=== PATIENT | female | born 1995 | race Caucasian/White ===

== ENCOUNTER 2025-02-24 07:20 | Outpatient (CLI) | payer BC, SELFPAY | END 2025-02-24 07:21 | disposition home or self-care (01) | PROVIDERS: PCP Physician Assistant Medical; Visit Provider Internal Medicine | DX: S29.9XXA Unspecified injury of thorax, initial encounter (principal); S60.512A Abrasion of left hand, initial encounter; S80.212A Abrasion, left knee, initial encounter; V29.408A Other motorcycle driver injured in collision with unspecified motor vehicles in traffic accident, initial encounter; Y92.488 Other paved roadways as the place of occurrence of the external cause | CPT/HCPCS: A0425; A0427 ==

== ENCOUNTER 2025-02-24 08:00 | Emergency (ER) | payer OTHER, BC, SELFPAY ==
[2025-02-24] VITALS (24 sets, daily range): BP systolic 120–158; BP diastolic 76–95; PULSE 69–87; RESP 10–28; TEMP 36.4; O2SAT 97–100; BMI 40.4
--- OUTSIDE RECORDS SUMMARY | 2025-02-24 08:01 | XMS_ITS | Clinical Summary ---
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 Name Role Phone 8CareTeamNurse-MA, 8CareTeamNurse-MA Unavailable Unavailable Conditions or Problems Problem Name Problem Code Onset Date Status Entry Date Provider Comment Standard Description Annotate Idiopathic intracranial hypertension [id number] (SNOMED CT) Active Stanton Pereyra MD Benign intracranial hypertension Medications Medication Instructions Start Date Stop Date Generic Name NDC Provider TOPAMAX 25 MG TABS Take 1 tablet by mouth once a day for 7 days, then take 2 tablet by mouth once a day for 7 days, then take 3 tablet by mouth once a day for 7 days, then take 4 tablet by mouth once a day thereafter 7 topiramate [id number] Stanton Pereyra MD TOPAMAX 25 MG TABS Take 2 tablet by mouth twice a day 5 topiramate [id number] Stanton Pereyra MD TOPAMAX 25 MG TABS Take 1 tablet by mouth once a day for 7 days, then take 2 tablet by mouth once a day for 7 days, then take 3 tablet by mouth once a day for 7 days, then take 4 tablet by mouth once a day thereafter 7 topiramate [id number] Stanton Pereyra MD VALIUM 5 MG TABS Take Take 1 tab 30 minutes prior to scan. May repeat once as needed. 1 diazepam [id number] Stanton Pereyra MD Medications Administered No information available. Allergies, Adverse Reactions, Alerts No information available. Results Date Name Value Unit Range Flag Description External Other: Outside Tom r[facility] EHORDERS ORDERS AUTO-COMPLETED e-Health orders Plan of Care Type Date Detail Appointment 08:00 AM Rosemary toussaint PA-C, [address] [facility] [address] [facility], [address], [place], [address], Referral Other Referral Pending order MRI-Brain W/WO Pending order Obtain outside r ecords Pending order Follow up Pending order Follow up Procedures Code Procedure Name Date Entry Date [id number] MRI-Brain W/WO ORDERS Obtain outside records 12/09 Vital Signs No information available. Immunizations No information available. Advance Directives No information available.
--- OUTSIDE RECORDS SUMMARY | 2025-02-24 08:01 | XMS_ITS | Clinical Summary ---
Author Organization [facility] Address [address] [place] [id number] Care Team Providers Care Education And Training Coordinator Name Role Phone Elsewhere, Pcp Primary Care Provider Unavailabl e Source Comments Patient records contain information from all sites at [facility]. For routine questions regarding patient records, call [phone] during business hours, M-F 8:00 AM - 5:00 PM Central Time. Record requests for emergency care only can be directed to [phone] at any time.[facility] Allergies No known active allergies Medications aspirin [address] tablet Take 81 mg by mouth daily. Active norethindrone (MICRONOR) 0.35 mg tablet Take 0.35 mg by mouth daily. 3 Active semaglutide (Wegovy) 1 mg/0.5 mL pen injector injection Inject 1 mg under the skin every 7 (seven) days. on Wednesdays Active ciprofloxacin-d exAMETHasone (CIPRODEX) 0.3-0.1 % otic suspension Administer 4 drops into the right ear 2 (two) times a day. 3 Active pantoprazole (PROTONIX) 20 mg EC tablet Take 20 mg by mouth every morning before breakfast. 3 Active hydrOXYzine (ATARAX) 25 mg tablet Take 25 mg by mouth every 6 (six) hours as needed for anxiety. 2 Active loratadine (CLARITIN) 10 mg tablet Take 10 mg by mouth daily as needed for allergies. Active acetaminophen (TYLENOL) 500 mg tablet Take 1,000 mg by mouth every 6 (six) hours as needed for pain. Active oxyCODONE (ROXICODONE) 5 mg immediate release tabletIndicatio ns:Acute Pain Take 1 tablet (5 mg total) by mouth every 6 (six) hours as needed for moderate pain or score 4-6 of 10 Indication: Acute Pain. 5 tablet 3 Active sennosides-docu sate sodium (SENOKOT-S) 8.6-50 mg per tablet Take 1 tablet by mouth at bedtime as needed for constipation. 3 Active Active Problems Problem Noted Date Diagnosed Date Mass Ovary 06/11/2023 Mass Adnexal 06/11/2023 Polycystic Ovary Syndrome 03/12/2018 Depression Major Recurrent Severe 02/20/2016 Overview (03/10/2017): Depression Major Recurrent Severe Morbid Obesity 01/16/2016 Overview (03/10/2017): Morbid Obesity Body Mass Index (BMI) >40 Adult Immunizations Immunization Administration Dates Next Due 4vHPV (discontinued) 02/06/2014,08/05/2012,04/02 DTaP (Infanrix, [employer]) 06/09/2002,,04/26/1998,1997,09/28/1997 HepB Pediatric/Adolescent 1996 HepB, Unspecified 04/26/1998,09/28/1997 Hib, Unspecified 10/15/2000, 8,11/08/1997,1996 Influenza, Injectable, Quadrivalent 07/25/2015 Influenza, Unspecified 08/01/2016,07/25/2015,06/2014 MMR 06/09/2002,04/26/1998 Polio, Unspecified 06/09/2002, 0,04/26/1998,1996 Tdap 10/25/2020,06/13/2009 JUDY 10/22/2009,06/22/2009 influenza vaccine quad (FLUZONE/FLUARIX) (6 months and older)(PF) 08/13/2021,10/25/2020,10/14/2019 Family History Medical History Relation Name Comments Alcohol abuse Father Sebastian Depression Father Sebastian Lung cancer Father's Brother 1 Jf Lung cancer Father's Brother 2 Cali Depression Mother Kathy Diabetes Mother Kathy Gestational diabetes Mother Kathy Hyperlipidemia Mother Kathy Hypertension Mother Kathy Migraines Mother Kathy Relation Name Status Comments Father Sebastian Father's Brother 1 Jf Father's Brother 2 Cali Mother Kathy Social History Tobacco Use Types Packs/Day Years Used Date Smoking Tobacco: Never Smokeless Tobacco: Never Tobacco Cessation:Counseling Given: Not Answered Alcohol Use Standard Drinks/Week Comments Yes 0 (1 standard drink = 0.6 oz pur e alcohol) very rarely; socially Humiliation, Afraid, Rape, and Kick questionnair e Answer Date Recorded Within the last year, have y ou been afraid of your partner or ex-partner? No 10/23/2021 Within the last year, have y ou been humiliated or emotionally abused in other ways by your partner or ex-partner? No Within the last year, have y ou been kicked, hit, slapped, or otherwise physically hurt by your partner or ex-partner? No 10/23/2021 Within the last year, have y ou been raped or forced to have any kind of sexual activity by your partner or ex-partner? No 10/23/2021 Social Connection and Isolat ion Panel [NHANES] Answer Date Recorded In a typical week, how many times do you talk on the phone with family, friends, or neighbors? More than three times a week 10/23/2021 How often do you get togethe r with friends or relatives? Once a week 10/23/2021 How often do you attend [facility] or baptist services? 1 to 4 times per year 10/23/2021 Do you belong to any clubs o r organizations such as mandaen groups, unions, fraternal or athletic groups, or school groups? No 10/23/2021 How often do you attend meet ings of the clubs or organizations you belong to? Patient declined 10/23/2021 Are you , , di vorced, , never , or living with a partner? 10/23/2021 AUDIT-C Answer Date Recorded Q1: How often do you have a drink containing alc ohol? Monthly or less 10/23/2021 Q2: How many drinks containi ng alcohol do you have on a typical day when you are drinking? 3 or 4 10/23/2021 Q3: How often do you have si x or more drinks on one occasion? Less than monthly 10/23/2021 Overall Financial Resource Strain (CARDIA) Answe r Date Recorded How hard is it for you to pa y for the very basics like food, housing, medical care, and heating? Not very hard 10/23/2021 PHQ-2 Answer Date Recorded PHQ-2 Score 1 03/23/2022 [facility] - Occupational Stress Questionnaire Answer Date Recorded Do you feel stress - tense, restless, nervous, or anxious, or unable to sleep at night because your mind is troubled all the time - these days? Very much 10/23/2021 Exercise Vital Sign Answer Date Recorde d On average, how many days pe r week do you engage in moderate to strenuous exercise (like a brisk walk)? 3 days 10/23/2021 On average, how many minutes do you engage in exercise at this level? 90 min 10/23/2021 Hunger Vital Sign Answer Date Recorded Within the past 12 months, y ou worried that your food would run out before you got the money to buy more. Never true 10/23/19 Within the past 12 months, t he food you bought just didn't last and you didn't have money to get more. Never true 10/23/2021 PRAPARE - Transportation Answer Date Re corded In the past 12 months, has l ack of transportation kept you from medical appointments or from getting medications? No 02/2022 In the past 12 months, has l ack of transportation kept you from meetings, work, or from getting things needed for daily living? No 10/23/2021 Housing Stability Vital Sign Answer Christofer e Recorded In the last 12 months, was t here a time when you were not able to pay the mortgage or rent on time? Patient refused 10/23/19 In the last 12 months, how many places have you lived? 1 10/23/2021 In the last 12 months, was t here a time when you did not have a steady place to sleep or slept in a fpc (including now)? No 10/23/2021 Depression Answer Date Recor ded PHQ-9 Total Score (max 27) 6 03/23 Nutrition Answer Date Recorded Nutrition: EVOO Fat Source No 10/23 On average, how many serving s of fruits and vegetables do you eat per day (serving size is equal to 1 cup or approximately the size of a tennis ball)? 2-3 10/23/2021 Dental Answer Date Recorded Dental: Regular Dentist Unknown 11/03/19 Employment Answer Date Recorded Employment status Employed and actively working without restrictions 10/23/2021 Education Answer Date Recorded What is the highest level of school you have completed or the highest degree you have received? Associate degree: occupational, technical, or vocational program 10/23/2021 Comments Unknown Sex and Gender Information Value Date Recorded Sex Assigned at Female 06/20/2021 9:24 PM CDT Legal Sex Female 6:31 AM [employer] Gender Identity Female 06/20/2021 9:24 PM CDT Sexual Orientation Straight 06/20/2021 9: 24 PM CDT Last Filed Vital Signs Vital Sign Reading Time Taken Comments Blood Pressure 129/75 06/12/2023 1:10 PM CDT Pulse 72 06/12/2023 1:10 PM CDT Temperature 36.7 C (98.1 F) 06/12/2023 1:10 PM CDT Respiratory Rate 18 06/12/2023 1:10 PM CDT Oxygen Saturation 94% 06/12/2023 1:10 PM CDT Inhaled Oxygen Concentration - - Weight 133 kg (292 lb 12.3 oz) 06/11/2023 12:54 PM CDT Height 170 cm (5' 6.93) 05/21/2021 2:30 PM CDT Body Mass Index 45.95 05/21/2021 2:30 PM CDT Plan of Treatment Health Maintenance Due Date Last Done Comments HIV Screening 1996 Hepatitis C Screening 1996 Depression Monitoring (PHQ-9) 07/23/2022 03/23/2022 Cervical/Vaginal Cancer Screening 05/03/2024 05/03/2021, 03/10/2018 COVID-19 Vaccine ( season) 2024 12/12/2020, 11/14/2020 Influenza Vaccine (#1) 2024 , 07/14/2022, 08/13/2021, Additional history exists Depression Monitoring (PHQ-9 for quality tracking) 10/19/2024 DTaP,Tdap,and Td Vaccines (8 - Td or Tdap) 10/25/2030 10/25/2020, 06/13/2009, 06/09/2002, Additional history exists Hepatitis B Vaccines Completed 04/26/1998, 09/28/1997, 1996 IPV Vaccines Completed 06/09/2002, 09/19, 04/26/1998, Additional history exists HPV Vaccines Completed 02/06/2014, 07/19, 04/02/2012 Chlamydia and Gonorrhea Screening Discontinued 06/11/2023, 08/22/2021, 09/17/2016, Additional history exists Pneumococcal vaccine (0-49 years) Aged Out No longer eligible based on patient's age to complete this topic Medical Devices Implanted Type Area Lever Miller Device Identifier Shelf Expiration Date Model / Serial / Lot Stent Other Stent Other Cerebellum Procedures Procedure Name Priority Date/Time Associated Diagnosis Comments CHLAMYDIA/GONORRHOE AE AMPLIFIED RNA STAT 06/11/2023 1:23 AM CDT PATHOLOGY STAFF PHYSICAL THERAPY ASSISTANT CYTOLOGY Routine 03/10/2018 12:00 AM CDT Pap Smear Examination from Last 3 Months or Most Recently Relevant to Health Maintenance Results * Chlamydia / Gonorrhoeae Amplified RNA (06/11/2023 1:23 AM CDT) Source Swab, Cervix/Endoc ervix 06/12/2023 1:44 PM CDT ECLR Chlamydia trachomatis amplified RNA Negative Negative 06/12/2023 1:44 PM CDT ECLR Source Swab, Cervix/Endoc ervix 06/12/2023 1:44 PM CDT ECLR Neisseria gonorrhoeae amplified RNA Negative Negative 06/12/2023 1:44 PM CDT ECLR Swab (Cervix/Endocerv ix) 06/11/2023 1:23 AM CDT 06/11/2023 3:18 PM CDT Hillary Lawrence P.A.-C., P.A., M.S. LAB MICROBIOLOG Y - GENERAL ORDERABLES Final Result Performing Organization Address City/[facility]/ZIP Co de Phone Number [facility] [address] [place] [phone], [facility] ECLR [address] [place] [id number] * Pathology STAFF PHYSICAL THERAPY ASSISTANT Cytology (03/10/2018 12:00 AM CDT) PATHOLOGY STAFF PHYSICAL THERAPY ASSISTANT CYTOLOGY Patient Name: HUY ARGUETA MR#: [id number] Submitting Physician: ARLINE JAMES, ADRIENNE, DNP, HAZARDOUS WASTE REMOVER [id number] Specimen #[id number] Performing Lab: [address] [address] CLINICAL HISTORY: Last menstrual period: [id number] Status: Does patient have Menstrual Period?: Yes Does patient have prior PAP?: No Pap Type: Routine Pap Clinical History/Status (Select all that apply): None Ancillary Testing: Perform reflex HPV Testing Source: ThinPrep cervical/endocervi shivani specimen [ThinPrep vial] Diagnosis Specimen Adequacy: Satisfactory for interpretation : endocervical or transformation zone component absent. General Categorization: Negative for intraepithelial lesion or malignancy. The PAP smear is not a diagnostic procedure and should not be used as the sole means to detect cervical cancer. It is only a screening procedure to aid in the detection of cervical cancer and its precursors. Both false-negative and false-positive results have been experienced. CANDE MATHEWS Thin Prep Vial (Cervix/Endocervi x) 03/10/2018 03/10/2018 us Arline James APRN, C.N.P., D.N.P. LAB PAP STAVE CUTTING SUPERVISOR ATH ORDERABLES Final Result Performing Organization Address [facility] [[email or web address]] Co de Phone Number CANDE MATHEWS [address] [place] [id number] from Last 3 Months or Most Recently Relevant to Health Maintenance Insurance [facility] [employer] [facility] [employer] Advance Directives For more information, please contact: [phone] * Full Code (Latest Code Status on File) Date Activated Date Inactivated Comments 06/11/2023 1:05 PM 06/12/2023 3:37 PM Question Answer Comments Full Code: Not Discussed Due to: Not medically appropriate Care Teams Education And Training Coordinator Relationship Specialty Start Date End Date Elsewhere, Pcp PCP - General Internal Medicine 06/11/23
--- OUTSIDE RECORDS SUMMARY | 2025-02-24 08:01 | XMS_ITS | Clinical Summary ---
Author Organization [facility] Address [address] [place] [address] Care Team Providers Care Power Reactor Operator Name Role Phone Bella Stafford MEDICAL INSURANCE CLAIMS PROCESSOR Unavailable [phone] Jf Hardin RN Unavailable Nidia Farrell DO Primary Care Provider [phone] Cali Abbott MD Unavailable [phone] Allergies Active Allergy Reactions Criticality Noted Date Comments Milk Containing Products (Dairy) Diarrhea 10/2023 Medications acetaminophen (TYLENOL EXTRA STRGTH) 500 mg tablet Take 1-2 Tablets (500-1,000 mg) by mouth every 6 hours if needed for Headache, Pain or Temp > (Specify) (1st choice for mild pain, 0-3/10). Max acetaminophen dose: 4000mg in 24 hrs. 0 02/25/20 23 Active hydrOXYzine HCL (ATARAX) 25 mg tabletIndications: Anxiety Take 1-2 Tablets (25-50 mg) by mouth every 6 hours if needed for Anxiety (or sleep). 30 Tablet 4 9:00 PM SEAL DELIVERY VEHICLE OFFICER 11/12/19 24 Active LORazepam (ATIVAN) 0.5 mg tabIndications:Cla ustrophobia Take 1 Tablet (0.5 mg) by mouth one time for 1 dose. 30 min prior to MRI 1 Tablet 04/13/20 24 Active omeprazole (PRILOSEC) 40 mg Delayed-Release capsuleIndications :Chronic GERD Take 1 Capsule (40 mg) by mouth once daily. 90 Capsule 3 11/01/19 25 Active rizatriptan (MAXALT) 5 mg tabletIndications: Chronic nonintractable headache, unspecified headache type Take 1 Tablet (5 mg) by mouth every 2 hours if needed for Migraine. Give at minimum 2hrs apart. Max Dose: 30mg per 24hrs. 12 Tablet 3 11/01/19 Active Topamax 25 mg tablet Take 25 mg by mouth once daily. 01/24/20 Active Active Problems Problem Noted Date Diagnosed Date Pulsatile tinnitus 02/10/2025 [facility] Encounter for preconception consultation Overview (08/01/2024): Rosa Wren Heber : 1995 [facility] PRECONCEPTION CONSULTATION ON 08/04/24 REFERRING PROVIDER/CLINIC LOCATION/FAX #: JOSE Arriola P [phone]; F [phone] Primary MD approves scheduling of recommended ultrasounds/testing: Not specified REASON FOR CONSULT: hx venous sinus shunt for ICP, considering IVF TODAY'S APPOINTMENT: MD Consultation PRIMARY DIAGNOSIS: 28 y.o. Hx venous sinus shunt for ICP 02/2023 BMI>40 Prediabetes PCOS Infertility SPECIALISTS/CONSULTS: Include: Specialty MD Clinic Name Phone# [facility] [place] and ADDED TO PATIENT CARE TEAM Reproductive: Dr. Abbott Neuro: Rasta Rojas MD [facility] 03/30/24 GENETICS: PROCEDURES: Brain MRI 04/28/24 1. No acute infarction, mass effect, or intracranial hemorrhage. No significant change compared to the prior MRI. 2. Partially empty sella may represent an anatomic variant, though raises the possibility of idiopathic intracranial hypertension in an appropriate clinical setting. PERTINENT LABS: PERTINENT MEDS: ASA PLAN OF CARE: Pap smear for cervical cancer screening 05/09/20 Overview (05/09/2024): 04/2024 NIL/HPV negative Plan: Pap/HPV due 04/2029 Mass of ovary 06/11/2023 Plavix resistance 03/03/2023 Overview (03/03/2023): Per hospital d/c note 02/2023: She was found to be hypo-responder to clopidogrel 75mg daily and was found therapeutic on clopidogrel 150mg daily. She will need to take clopidogrel 150mg daily steady state through 05/27/2023, then taper off stopping 06/27/2023 to prevent thromboembolic complications from devices used. Recommend to take ASA 81 mg daily for 1 year following stenting for antiplatelet properties. Dr. Peterson to manage antiplatelet medications. GERD (gastroesophageal reflux disease) 3 Idiopathic intracranial hype rtensions/p right transverse sigmoid sinus stenting 02/24/23 01/29/2023 Overview (11/01/2024): Recommended to take daily baby aspirin, but holding during attempting conception. Recommended to then start baby aspirin at 12 weeks gestation. Saw MFM; no contraindications to IV or pushing during vaginal delivery (see documentation Jul 2024). Migraine with aura, not intr actable, without status migrainosus 07/09/2022 Polycystic ovary syndrome 03/12/2018 Morbid obesity 01/16/2016 02/24/2023 Overview (02/24/2023): Morbid Obesity Body Mass Index (BMI) >40 Adult Resolved Problems Problem Noted Date Diagnosed Date Resolved Date Severe episode of recurrent major depressive disorder 02/20/2016 02/24/2023 11/12/2023 Overview (02/24/2023): Depression Major Recurrent Severe Encounters Date Type Department Care Team Description 02/10/2025 7:00 AM CDT - 02/10/2025 11:59 PM CDT Hospital Encounter [facility] [address] [place] [address] Jose E Peterson MD Pulsatile tinnitus; Headache 02/10/2025 Travel 01/24/2025 10:10 AM CDT Office Visit [facility] [address] [place] [address] Emily Escalante, DO Preoperative Exam (CT Angiogram , 02/10, [facility], Dr. Jose E Peterson) 01/24/2025 7:00 AM CDT Telemedicine [facility] [address] [place] [address] Ana Babb, SCRATCH BRUSHER Individual Therapy 01/24/2025 Travel 01/20/2025 Telephone [facility] [address] [place] [address] Dawn James RN Concerns 01/20/2025 Travel 01/19/2025 9:34 AM CDT - 01/19/2025 2:49 PM CDT Emergency [facility] [address] [place] [id number] Zara Hay MD Nonintractable headache, unspecified chronicity pattern, unspecified headache type (Primary Dx) Discharge Disposition: Home Self Care 01/19/2025 Travel 01/09/2025 11:00 AM CDT E-Visit [address] [address] Emily Escalante, DO eVisit for Vaginal Discharge / Irritation 01/09/2025 Travel 01/03/2025 7:00 AM CDT - 01/03/2025 11:59 PM CDT Hospital Encounter [facility] [address] [place] [address] Jose E Peterson MD Pulsatile tinnitus; Headache 01/03/2025 Travel 12/21/2024 Telephone [facility] [address] [place] [address] Dawn James RN Imaging 12/20/2024 6:59 AM SEAL DELIVERY VEHICLE OFFICER - 12/20/2024 11:59 PM SEAL DELIVERY VEHICLE OFFICER Hospital Encounter [facility] [address] [place] [phone] Jose E Peterson MD Headache; Pulsatile tinnitus 12/20/2024 Travel 12/16/2024 Telephone [facility] [address] [place] [address] Rina Heath NP Concerns 12/13/2024 9:12 AM SEAL DELIVERY VEHICLE OFFICER - 12/13/2024 11:59 PM SEAL DELIVERY VEHICLE OFFICER Hospital Encounter [facility] [id number] [place] [address] Emily Escalante DO Holm, Kaitlyn A, PT 12/13/2024 Travel 12/06/2024 9:11 AM SEAL DELIVERY VEHICLE OFFICER - 12/06/2024 11:59 PM SEAL DELIVERY VEHICLE OFFICER Hospital Encounter [facility] [address] [address] Emily Escalante DO Holm, Kaitlyn A, PT 12/06/2024 Travel 12/05/2024 Medical Messaging [facility] [address] [place] [address] Emily Escalante DO Neurology referral 11/29/2024 9:06 AM SEAL DELIVERY VEHICLE OFFICER - 11/29/2024 11:59 PM SEAL DELIVERY VEHICLE OFFICER Hospital Encounter [facility] [address] [address] Emily Escalante DO Holm, Kaitlyn A, PT 11/29/2024 Travel from Last 3 Months Immunizations Immunization Administration Dates Next Due COVID-19 vaccine (Moderna 100mcg/0.5mL) PF, MDV 12/12/2020,11/14/2020 DTaP 06/09/2002, 0,04/26/1998,1997,09/28/1997 Hepatitis B (Peds) 1995 Hepatitis B, Unspecified 04/26/1998,09/28/1997 Hib Conjugate, Unspecified 10/15/2000,,11/08/1997,1996 Human Papilloma Virus Vaccine 02/06/2014, 012,04/02/2012 Influenza Virus, Unspecified 08/01/2016,07/25/20 15,07/27/2014 Influenza, IIV4 07/09/2023,,10/25/2020,2018 Influenza, IIV4 (=>6mos) MDV 07/25/2015 Influenza, Inactivated AIIV4 (Age 65+ Years) Preserv Free 07/14/2022 MMR 06/09/2002,04/26/1998 Polio Virus, Unspecified 06/09/2002,09/19,04/26/1998,1996 Tdap 10/25/2020,06/13/2009 Varicella Vaccine 10/22/2009,06/22/2009 Family History Medical History Relation Name Comments Good Health Brother 1 Stefano Good Health Brother 2 Sebastian Alcoholism Father Sebastian Anxiety disorder Father Sebastian Good Health Father Sebastian Hypertension Father Sebastian Good Health Half-Sister Lori Diabetes Maternal Grandfather Antolin Diabetes type II Maternal Grandfather Antolin Hyperlipidemia Maternal Grandfather Anotlin Hypertension Maternal Grandfather Antolin Obesity Maternal Grandfather Antolin Diabetes Maternal Grandmother Renetta Diabetes type II Maternal Grandmother Renetta Hyperlipidemia Maternal Grandmother Renetta Hypertension Maternal Grandmother Renetta Obesity Maternal Grandmother Renetta Anxiety disorder Mother Kathy Diabetes Mother Kathy type 2, from ketoacidosis Good Health Mother Kathy Passed 2018 Obesity Mother Kathy Stroke Paternal Grandmother Jenniffer Thyroid Disease Paternal Grandmother Jenniffer Diabetes Sister 1 Gestational diabetes Sister 1 Diabetes Sister 2 Jayna Good Health Sister 2 Jayna Good Health Sister 3 Janine Anesthesia Problem No Family History Blood Disease No Family History Cancer-breast No Family History Cancer-colon No Family History Cancer-ovarian No Family History Cancer-prostate No Family History Relation Name Status Comments Brother 1 Stefaon Brother 2 Sebastian Father Sebastian Half-Sister Lori Alive Maternal Grandfather Antolin Maternal Grandmother Renetta Mother Kathy Paternal Grandmother Jenniffer Sister 1 Sister 2 Jayna Sister 3 Janine Social History Tobacco Use Types Packs/Day Years Used Date Smoking Tobacco: Never Smokeless Tobacco: Never Tobacco Cessation:Counseling Given: Yes Alcohol Use Standard Drinks/Week Comments No 0 (1 standard drink = 0.6 oz pur e alcohol) PHQ-2 Answer Date Recorded PHQ-2 TOTAL SCORE 1 01/24/2025 Social Connections Answer Date Recorded Do you often feel lonely or isolated from those around you? 0 08/25/2024 Financial Resource Strain Answer Date R ecorded Difficulty of Paying Living Expenses 3 08/25/2024 Difficulty of Paying Living Expenses Not on file 08/25/2024 Food Insecurity Answer Date Recorded Do you worry your food will run out before you are able to buy more? 1 08/25/2024 Transportation Needs Answer Date Record ed Does lack of transportation keep you from medica l appointments? 1 08/25/2024 Does lack of transportation keep you from work, meetings or getting things that you need? 1 08/25/2024 Housing Stability Answer Date Recorded What is your housing situation today? 1 08/25/2024 Interpersonal Safety Answer Date Record ed Are you being hit, kicked, p ushed or yelled at (see row info)? No 01/19/2025 Interpersonal Safety Abuse 12 - 18 Not on file 01/19/2025 Interpersonal Safety Ambulatory Vulnerability No t on file 01/19/2025 Utilities Answer Date Recorded Do you have trouble paying f or utilities (for example, heat, electricity, water, phone)? 1 08/25/2024 Comments No Sex and Gender Information Value Date Recorded Sex Assigned at Female 09/30/2021 9:19 PM SEAL DELIVERY VEHICLE OFFICER Legal Sex Female 4:34 PM SEAL DELIVERY VEHICLE OFFICER Gender Identity Female 09/30/2021 9:19 PM SEAL DELIVERY VEHICLE OFFICER Sexual Orientation Straight 09/30/2021 9: 19 PM SEAL DELIVERY VEHICLE OFFICER Occupation Industry Job Start Date Job End Date Not on file Not on file Not on file Not on file Obstetrics History Para Term AB IAB SAB Ectopic Multiple Livin g Live Births 1 1 Date Outcome GA Total Labor Labor/2nd/3rd Weight Sex Type Anes PTL Carmen A1 A5 Name Clin 10/2019 AB 8w0d Last Filed Vital Signs Vital Sign Reading Time Taken Comments Blood Pressure 129/80 02/10/2025 11:45 AM CDT Pulse 73 02/10/2025 11:45 AM CDT Temperature 36.1 C (97 F) 02/10/2025 7:48 AM CDT Respiratory Rate 18 02/10/2025 11:45 AM CDT Oxygen Saturation 98% 02/10/2025 11:45 AM CDT Inhaled Oxygen Concentration - - Weight 114.3 kg (252 lb) 02/10/2025 7:43 AM CDT Height 167.6 cm (5' 6) 02/10/2025 7:43 AM CDT Body Mass Index 40.67 02/10/2025 7:43 AM CDT Plan of Treatment Health Maintenance Due Date Last Done Comments COVID-19 vaccine series ( season) 2024 12/12/2020, 11/14/2020 Influenza Vaccine (Season Ended) 2025 07/09/2023, 07/14/2022, 08/13/2021, Additional history exists BMI (ht and wt on same day) for age 18+ 11/01/2025 11/01/2024, 01/27/2024, 11/12/2023, Additional history exists Depression screening for age 12+ 01/24/2026 01/24/2025, 01/24/2025, 10/25/2024, Additional history exists Pap test for age 21-65 04/28/2029 , 04/28/2024, 05/03/2021 Tetanus booster 10/25/2030 10/25/2020, 06/13/2009 Tdap Completed 10/25/2020, 06/13/2009 HIV for age 15-65 Completed 09/25/2022 Hepatitis C screening for age 18-79 Completed 09/25/2022 Pneumococcal series for age 6-49 Aged Out No longer eligible based on patient's age to complete this topic Procedures Procedure Name Priority Date/Time Associated Diagnosis Comments IR ANGIO CAROTID CEREBRAL BILATERAL Routine 02/10/2025 9:55 AM CDT Pulsatile tinnitus Headache URINE Preop 02/10/2025 7:38 AM CDT CREATININE Routine 01/24/2025 10:30 AM CDT Pre-op exam MR HEAD BRAIN WWO STAT 01/19/2025 1:2 1 PM CDT MR HEAD BRAIN VENOGRAM WWO STAT 01/19/2025 1:[address] HEAD BRAIN WO STAT 01/19/2025 11:[address] ANGIO HEAD AND NECK CAROTID STAT 01/19/2025 11:18 AM CDT CBC WITH AUTO DIFFERENTIAL STAT 01/19/2025 10:18 AM CDT ,SERUM QUALITATIVE STAT 01/19/2025 10:18 AM CDT BASIC METABOLIC PANEL STAT 01/19/2025 10:18 AM CDT CBC WITH AUTO DIFFERENTIAL STAT 01/19/2025 10:[address] VENOGRAM HEAD W Routine 01/03/2025 8: 23 AM CDT Pulsatile tinnitus Headache CT HEAD BRAIN WO ASHA 12/20/2024 7:30 AM SEAL DELIVERY VEHICLE OFFICER Headache Pulsatile tinnitus CT VENOGRAM HEAD W ASHA 12/20/2024 7 :25 AM SEAL DELIVERY VEHICLE OFFICER Headache Pulsatile tinnitus HPV HIGH RISK Routine 04/28/2024 8:45 AM CDT Cervical cancer screening ANTI HIV 1/2 Routine 09/25/2022 9:20 AM SEAL DELIVERY VEHICLE OFFICER Encounter for screening for HIV ANTI HCV Routine 09/25/2022 9:20 AM SEAL DELIVERY VEHICLE OFFICER Need for hepatitis C screening test from Last 3 Months or Most Recently Relevant to Health Maintenance Results * IR ANGIO CAROTID CEREBRAL BILATERAL (02/10/2025 9:55 AM CDT) Anatomical Region Laterality Modality BRAIN X-Ray Angiograph y, Other, Other, Other Narrative 02/10/2025 3:55 PM CDT Neurointerventional Procedure Report Patient: Rosa Buck (1995), Date: 02/10/2025 Physician(s): Jose E Peterson MD Procedure(s): Cerebral angiography: Selective catheter placement, right internal carotid artery, with angiography of the intracranial carotid circulation (CPT 26982) Selective catheter placement, right external carotid artery, with angiography of the external carotid circulation (CPT +10226) Selective catheter placement, left internal carotid artery, with angiography of the intracranial carotid circulation (CPT 68129) Selective catheter placement, left external carotid artery, with angiography of the external carotid circulation (CPT +85159) Selective catheter placement, right vertebral artery, with angiography of the vertebral circulation (CPT 25176) Selective catheter placement, left vertebral artery, with angiography of the vertebral circulation (CPT 06382) Ultrasound guidance for vascular access: right common femoral artery access (CPT +95620) Selective catheter placement, venous system; second order, or more selective: superior sagittal sinus (CPT 07197) Venography, superior sagittal sinus, radiological supervision and interpretation (CPT 91315) Venography, venous sinus, radiological supervision and interpretation: right transverse sigmoid sinus (CPT 32979) Ultrasound guidance for vascular access: right common femoral vein access (CPT +33318) Pre-operative diagnosis (indication): Persistent headaches, tinnitus, right transverse sinus stent placed in 2022. Post-operative diagnosis: Same, see Impression. Anesthesia: Lidocaine 1% local. Consent: Informed consent was obtained from the patient following a detailed discussion of the procedure, alternatives, risks and potential benefits. Time-out: Performed according to the [facility] Protocol. Description: The patient was placed in the supine position on the angiography table. The arterial access site was sterilely prepped and draped. Lidocaine 1% was used for local anesthesia. Initially, we performed a complete cerebral angiogram to exclude a dural arteriovenous fistula: Ultrasound evaluation of potential access site was performed. After successfully identifying a patent vessel, ultrasound guidance was used to puncture the right common femoral artery with a micropuncture set, and a 6F sheath was inserted. A permanent recording was created for the patient record. A 5F diagnostic catheter was advanced over an 035 glidewire into the following vessels: Selective catheter placement, right internal carotid artery, with angiography of the intracranial carotid circulation Selective catheter placement, right external carotid artery, with angiography of the external carotid circulation Selective catheter placement, left internal carotid artery, with angiography of the intracranial carotid circulation Selective catheter placement, left external carotid artery, with angiography of the external carotid circulation Selective catheter placement, right vertebral artery, with angiography of the vertebral circulation Selective catheter placement, left vertebral artery, with angiography of the vertebral circulation The catheter and sheath were removed. Hemostasis was achieved using a 6F AngioSeal device. Findings: Right internal carotid artery selective injection: There is normal opacification of the intracranial right carotid circulation. Right external carotid artery selective injection: There is normal opacification of right external carotid branches. Left internal carotid artery selective injection: There is normal opacification of the intracranial left carotid circulation. Left external carotid artery selective injection: There is normal opacification of left external carotid branches. Right vertebral artery selective injection: There is normal opacification of the posterior circulation. Left vertebral artery selective injection: There is normal opacification of the posterior circulation. Next, we performed a cerebral venogram to evaluate the existing stent for a recurrent pressure gradient: Ultrasound evaluation of potential access site was performed. After successfully identifying a patent vessel, ultrasound guidance was used to puncture the right common femoral vein with a micropuncture set, and a 6F sheath was inserted. A permanent recording was created for the patient record. A 95 cm Benchmark guide catheter was used to selectively catheterize the right internal jugular vein. A 3 Max microcatheter was used to selectively catheterize the superior sagittal sinus. A selective contrast injection here showed a widely patent sinus (superior sagittal sinus venography). Pressure measurements in the superior sagittal sinus ranged from 10 to 13 mmHg. Of note, the right transverse sinus (dominant sinus) stent was widely patent. We then retracted the 3 Max into the right transverse sinus. Venography here confirmed a widely patent stent. No significant pressure gradient was noted across the stent (pressure measurements around 10 mmHg throughout). An approximately 10 mm triangular shaped diverticulum was noted extending superiorly from the internal jugular bulb. The catheter and sheath were removed. Hemostasis was achieved using manual compression. Findings: As above Complications: None Specimens: None Estimated blood loss: 5 mL Medications: Visipaque-320 75 mL IA Fluoroscopy time: 12:05, 1655 mGy Impression: Normal cerebral arteriogram. Cerebral venography showed widely patent right transverse stent with no significant pressure gradient. Incidental right internal jugular diverticulum. Findings and recommendations reviewed with the patient before discharge. Jose E Peterson MD Neurointerventional Radiology Jose E Peterson MD IR Final Result * Urine (02/10/2025 7:38 AM CDT) ,URIN E Negative Negative 02/10/2025 7:51 AM CDT [facility] Urine URINE SPECIMEN / Unknown Non-Blood / Unknown 02/10/2025 7:38 AM CDT 02/10/2025 7:38 AM CDT Rina Heath MEDICAL INSURANCE CLAIMS PROCESSOR URINE Final Res ult [facility] [address] [place] [address], [place] * CREATININE (01/24/2025 10:30 AM CDT) CREATININE 0.59 0.50 - 0.96 mg/dL [facility] EGFR 126 > OR = 60 mL/min/1.73 m2 [facility] Blood BLOOD SPECIMEN / Unknown 01/24/2025 10:30 AM CDT 01/24/2025 10:31 AM CDT us Emily Delgadocarrie DO CHEMISTRY Final Result [facility] [address] [place] [address], [place] [phone] [email or web address] [address] [place] [address] * MR HEAD BRAIN VENOGRAM WWO (01/19/2025 1:21 PM CDT) Anatomical Region Laterality Modality HEAD Magnetic Resonan ce 01/19/2025 1:21 PM CDT Impressions 01/19/2025 2:03 PM CDT MRI BRAIN: 1. No finding for intracranial hemorrhage, mass, or acute infarct. 2. There is new mild flattening of the posterior margin of both globes without clear optic cupping. Given headache and clinical features suggesting intracranial hypertension, correlation with funduscopic exam is suggested to exclude papilledema. MRV BRAIN: 1. Patient is status post right transverse sinus stenting. Although not well evaluated on the basis of this exam, the stent appears patent. 2. Dural venous sinuses are otherwise patent. Narrative 01/19/2025 2:03 PM CDT For Patients: As a result of the 21st Century Cures Act, medical imaging exams and procedure reports are released immediately into your electronic medical record. You may view this report before your referring provider. If you have questions, please contact your health care provider. EXAM: MR HEAD BRAIN VENOGRAM WWO, MR HEAD BRAIN WWO LOCATION: [facility] DATE: 01/19/2025 INDICATION: Headache, intracranial hypertension features COMPARISON: MRI brain 04/28/2024. CTA [place] and neck 01/19/2025. CTV 01/03/2025. CONTRAST: Clariscan 20 mL. TECHNIQUE: Routine multiplanar multisequence head MRI without and with intravenous contrast. FINDINGS: MRI BRAIN: INTRACRANIAL CONTENTS: There are no areas of abnormally restricted diffusion to suggest acute or subacute infarct. There are no areas of abnormal parenchymal susceptibility or abnormal enhancement. Ventricles are normal in size. Normal noyola-white matter differentiation. No mass effect or midline shift. Cerebellar tonsils are normally positioned. Visualized upper cervical spinal cord and corpus callosum are unremarkable. Partially empty sella. Major skull base vascular flow-voids are preserved. OSSEOUS STRUCTURES/SOFT TISSUES: Visualized marrow space is unremarkable. ORBITS: There is slight flattening in the posterior aspect of the optic globes, new compared to 04/28/2024 prior. No abnormal fluid is seen along the optic nerves. SINUSES/MASTOIDS: Mild ethmoid sinus mucosal thickening. No middle ear or mastoid effusion. MRV BRAIN: Superior sagittal sinus, straight sinus, left transverse and sigmoid sinus and right sigmoid sinus are patent. Patient is status post stenting of the right transverse sinus. Although not well-evaluated in the basis of this exam, the stent appears patent on the postcontrast enhanced images. Procedure Note Mateo Cisneros II, MD, PhD - 01/19/2025 For Patients: As a result of the Century Cures Act, medical imagingexams and procedure reports are released immediately into your electronicmedical record. You may view this report before your referring provider.If you have questions, please contact your health care provider. EXAM: MR HEAD BRAIN VENOGRAM WWO, MR HEAD BRAIN WWO LOCATION: [facility] DATE: 01/19/2025 INDICATION: Headache, intracranial hypertension features COMPARISON: MRI brain 04/28/2024. CTA [place] and neck 01/19/2025.CTV 01/03/2025. CONTRAST: Clariscan 20 mL. TECHNIQUE: Routine multiplanar multisequence head MRI without and withintravenous contrast. FINDINGS: MRI BRAIN: INTRACRANIAL CONTENTS: There are no areas of abnormally restricteddiffusion to suggest acute or subacute infarct. There are no areas ofabnormal parenchymal susceptibility or abnormal enhancement. Ventricles are normal in size. Normal noyola-white matter differentiation.No mass effect or midline shift. Cerebellar tonsils are normally positioned. Visualized upper cervicalspinal cord and corpus callosum are unremarkable. Partially empty sella.Major skull base vascular flow-voids are preserved. OSSEOUS STRUCTURES/SOFT TISSUES: Visualized marrow space isunremarkable. ORBITS: There is slight flattening in the posterior aspect of the opticglobes, new compared to 04/28/2024 prior. No abnormal fluid is seen alongthe optic nerves. SINUSES/MASTOIDS: Mild ethmoid sinus mucosal thickening. No middle ear ormastoid effusion. MRV BRAIN: Superior sagittal sinus, straight sinus, left transverse andsigmoid sinus and right sigmoid sinus are patent. Patient is status poststenting of the right transverse sinus. Although not well-evaluated in thebasis of this exam, the stent appears patent on the postcontrast enhancedimages. IMPRESSION: MRI BRAIN: 1. No finding for intracranial hemorrhage, mass, or acute infarct. 2. There is new mild flattening of the posterior margin of both globeswithout clear optic cupping. Given headache and clinical featuressuggesting intracranial hypertension, correlation with funduscopic exam issuggested to exclude papilledema. MRV BRAIN: 1. Patient is status post right transverse sinus stenting. Although notwell evaluated on the basis of this exam, the stent appears patent. 2. Dural venous sinuses are otherwise patent. us Zara Hay MD MR Final Res ult * MR BRAIN W/WO CONTRAST (01/19/2025 1:21 PM CDT) Anatomical Region Laterality Modality BRAIN, HEAD Magnetic Resonan ce 01/19/2025 1:21 PM CDT Impressions 01/19/2025 2:03 PM CDT MRI BRAIN: 1. No finding for intracranial hemorrhage, mass, or acute infarct. 2. There is new mild flattening of the posterior margin of both globes without clear optic cupping. Given headache and clinical features suggesting intracranial hypertension, correlation with funduscopic exam is suggested to exclude papilledema. MRV BRAIN: 1. Patient is status post right transverse sinus stenting. Although not well evaluated on the basis of this exam, the stent appears patent. 2. Dural venous sinuses are otherwise patent. Narrative 01/19/2025 2:03 PM CDT For Patients: As a result of the Cures Act, medical imaging exams and procedure reports are released immediately into your electronic medical record. You may view this report before your referring provider. If you have questions, please contact your health care provider. EXAM: MR HEAD BRAIN VENOGRAM WWO, MR HEAD BRAIN WWO LOCATION: [facility] DATE: 01/19/2025 INDICATION: Headache, intracranial hypertension features COMPARISON: MRI brain 04/28/2024. CTA [place] and neck 01/19/2025. CTV 01/03/2025. CONTRAST: Clariscan 20 mL. TECHNIQUE: Routine multiplanar multisequence head MRI without and with intravenous contrast. FINDINGS: MRI BRAIN: INTRACRANIAL CONTENTS: There are no areas of abnormally restricted diffusion to suggest acute or subacute infarct. There are no areas of abnormal parenchymal susceptibility or abnormal enhancement. Ventricles are normal in size. Normal noyola-white matter differentiation. No mass effect or midline shift. Cerebellar tonsils are normally positioned. Visualized upper cervical spinal cord and corpus callosum are unremarkable. Partially empty sella. Major skull base vascular flow-voids are preserved. OSSEOUS STRUCTURES/SOFT TISSUES: Visualized marrow space is unremarkable. ORBITS: There is slight flattening in the posterior aspect of the optic globes, new compared to 04/28/2024 prior. No abnormal fluid is seen along the optic nerves. SINUSES/MASTOIDS: Mild ethmoid sinus mucosal thickening. No middle ear or mastoid effusion. MRV BRAIN: Superior sagittal sinus, straight sinus, left transverse and sigmoid sinus and right sigmoid sinus are patent. Patient is status post stenting of the right transverse sinus. Although not well-evaluated in the basis of this exam, the stent appears patent on the postcontrast enhanced images. Procedure Note Mateo Cisneros II, MD, PhD - 01/19/2025 For Patients: As a result of the Cures Act, medical imagingexams and procedure reports are released immediately into your electronicmedical record. You may view this report before your referring provider.If you have questions, please contact your health care provider. EXAM: MR HEAD BRAIN VENOGRAM WWO, MR HEAD BRAIN WWO LOCATION: [facility] DATE: 01/19/2025 INDICATION: Headache, intracranial hypertension features COMPARISON: MRI brain 04/28/2024. CTA [place] and neck 01/19/2025.CTV 01/03/2025. CONTRAST: Clariscan 20 mL. TECHNIQUE: Routine multiplanar multisequence head MRI without and withintravenous contrast. FINDINGS: MRI BRAIN: INTRACRANIAL CONTENTS: There are no areas of abnormally restricteddiffusion to suggest acute or subacute infarct. There are no areas ofabnormal parenchymal susceptibility or abnormal enhancement. Ventricles are normal in size. Normal noyola-white matter differentiation.No mass effect or midline shift. Cerebellar tonsils are normally positioned. Visualized upper cervicalspinal cord and corpus callosum are unremarkable. Partially empty sella.Major skull base vascular flow-voids are preserved. OSSEOUS STRUCTURES/SOFT TISSUES: Visualized marrow space isunremarkable. ORBITS: There is slight flattening in the posterior aspect of the opticglobes, new compared to 04/28/2024 prior. No abnormal fluid is seen alongthe optic nerves. SINUSES/MASTOIDS: Mild ethmoid sinus mucosal thickening. No middle ear ormastoid effusion. MRV BRAIN: Superior sagittal sinus, straight sinus, left transverse andsigmoid sinus and right sigmoid sinus are patent. Patient is status poststenting of the right transverse sinus. Although not well-evaluated in thebasis of this exam, the stent appears patent on the postcontrast enhancedimages. IMPRESSION: MRI BRAIN: 1. No finding for intracranial hemorrhage, mass, or acute infarct. 2. There is new mild flattening of the posterior margin of both globeswithout clear optic cupping. Given headache and clinical featuressuggesting intracranial hypertension, correlation with funduscopic exam issuggested to exclude papilledema. MRV BRAIN: 1. Patient is status post right transverse sinus stenting. Although notwell evaluated on the basis of this exam, the stent appears patent. 2. Dural venous sinuses are otherwise patent. us Zara Hay MD MR Final Res ult * CT HEAD BRAIN WO (01/19/2025 11:19 AM CDT) Only the most recent of2 resultswithin the time period is included. Anatomical Region Laterality Modality HEAD, BRAIN Computed Tomogra phy 01/19/2025 11:1 9 AM CDT Impressions 01/19/2025 11:[address]: 1. No acute intracranial abnormality. NECK CTA: 1. Patent neck vasculature. HEAD CTA: 1. No large vessel occlusion. No discernible aneurysm. 2. Right transverse sinus stent patency not assessed. Narrowed left transverse sinus. Narrative 01/19/2025 11:45 AM CDT For Patients: As a result of the Cures Act, medical imaging exams and procedure reports are released immediately into your electronic medical record. You may view this report before your referring provider. If you have questions, please contact your health care provider. EXAM: CT HEAD BRAIN WO, CTA HEAD AND NECK CAROTID LOCATION: [facility] DATE: 01/19/2025 INDICATION: headache, tinnitus COMPARISON: CT and CTV head 12/20/2024. CTV head 01/03/2025. MRI brain 04/28/2024. CONTRAST: *None (accession [id number]), IOHEXOL 350 MG IODINE/ML IV 100 ML BOTTLE: 75mL (accession [id number]) TECHNIQUE: Head and neck CT angiogram with IV contrast. Noncontrast head CT followed by axial helical CT images of the head and neck vessels obtained during the arterial phase of intravenous contrast administration. Axial 2D reconstructed images and multiplanar 3D MIP reconstructed images of the head and neck vessels were performed by the technologist. Dose reduction techniques were used. All stenosis measurements made according to NASCET criteria unless otherwise specified. FINDINGS: NONCONTRAST HEAD CT: INTRACRANIAL CONTENTS: Normal parenchymal morphology. Normal ventricular volumes for age. No intracranial hemorrhage, extraaxial collection, or mass effect. No CT evidence of acute infarct. Redemonstrated partially empty sella. VISUALIZED ORBITS/SINUSES/MASTOIDS: No intraorbital abnormality. No paranasal sinus mucosal disease. No middle ear or mastoid effusion. BONES/SOFT TISSUES: No acute abnormality. NECK CTA: AORTIC ARCH: Normal caliber three-vessel aortic arch. Patent proximal great vessels. RIGHT CAROTID: Patent. LEFT CAROTID: Patent. VERTEBRAL ARTERIES: Patent. Right dominant vertebral system. NONVASCULAR STRUCTURES: Unremarkable. HEAD CTA: Assessment degraded due to bolus timing. ANTERIOR CIRCULATION: Patent intracranial carotid vasculature. No large vessel occlusion or aneurysm. POSTERIOR CIRCULATION: Patent intracranial vertebral vasculature. Patent basilar artery. No large vessel occlusion or aneurysm. DURAL VENOUS SINUSES: Right transverse sinus stent present but patency not well characterized due to nature of study (CTA rather than CTV). Narrowed left transverse sinus. Procedure Note Hal Robin MD - 01/19/2025 For Patients: As a result of the Cures Act, medical imagingexams and procedure reports are released immediately into your electronicmedical record. You may view this report before your referring provider.If you have questions, please contact your health care provider. EXAM: CT HEAD BRAIN WO, CTA HEAD AND NECK CAROTID LOCATION: [facility] DATE: 01/19/2025 INDICATION: headache, tinnitus COMPARISON: CT and CTV head 12/20/2024. CTV head 01/03/2025. MRI brain04/28/2024. CONTRAST: *None (accession [id number]), IOHEXOL 350 MG IODINE/ML IV 100 MLBOTTLE: 75mL (accession [id number]) TECHNIQUE: Head and neck CT angiogram with IV contrast. Noncontrast headCT followed by axial helical CT images of the head and neck vesselsobtained during the arterial phase of intravenous contrast administration.Axial 2D reconstructed images and multiplanar 3D MIP reconstructed imagesof the head and neck vessels were performed by the technologist. Dosereduction techniques were used. All stenosis measurements made accordingto NASCET criteria unless otherwise specified. FINDINGS: NONCONTRAST HEAD CT: INTRACRANIAL CONTENTS: Normal parenchymal morphology. Normal ventricularvolumes for age. No intracranial hemorrhage, extraaxial collection, ormass effect. No CT evidence of acute infarct. Redemonstrated partiallyempty sella. VISUALIZED ORBITS/SINUSES/MASTOIDS: No intraorbital abnormality. Noparanasal sinus mucosal disease. No middle ear or mastoid effusion. BONES/SOFT TISSUES: No acute abnormality. NECK CTA: AORTIC ARCH: Normal caliber three-vessel aortic arch. Patent proximalgreat vessels. RIGHT CAROTID: Patent. LEFT CAROTID: Patent. VERTEBRAL ARTERIES: Patent. Right dominant vertebral system. NONVASCULAR STRUCTURES: Unremarkable. HEAD CTA: Assessment degraded due to bolus timing. ANTERIOR CIRCULATION: Patent intracranial carotid vasculature. No largevessel occlusion or aneurysm. POSTERIOR CIRCULATION: Patent intracranial vertebral vasculature. Patentbasilar artery. No large vessel occlusion or aneurysm. DURAL VENOUS SINUSES: Right transverse sinus stent present but patency notwell characterized due to nature of study (CTA rather than CTV). Narrowedleft transverse sinus. IMPRESSION: HEAD CT: 1. No acute intracranial abnormality. NECK CTA: 1. Patent neck vasculature. HEAD CTA: 1. No large vessel occlusion. No discernible aneurysm. 2. Right transverse sinus stent patency not assessed. Narrowed lefttransverse sinus. us Zara Hay MD CT Final Res ult * CTA HEAD AND NECK CAROTID (01/19/2025 11:18 AM CDT) Anatomical Region Laterality Modality BRAIN, NECK Computed Tomogra phy 01/19/2025 11:1 8 AM CDT Impressions 01/19/2025 11:[address]: 1. No acute intracranial abnormality. NECK CTA: 1. Patent neck vasculature. HEAD CTA: 1. No large vessel occlusion. No discernible aneurysm. 2. Right transverse sinus stent patency not assessed. Narrowed left transverse sinus. Narrative 01/19/2025 11:45 AM CDT For Patients: As a result of the Cures Act, medical imaging exams and procedure reports are released immediately into your electronic medical record. You may view this report before your referring provider. If you have questions, please contact your health care provider. EXAM: CT HEAD BRAIN WO, CTA HEAD AND NECK CAROTID LOCATION: [facility] DATE: 01/19/2025 INDICATION: headache, tinnitus COMPARISON: CT and CTV head 12/20/2024. CTV head 01/03/2025. MRI brain 04/28/2024. CONTRAST: *None (accession [id number]), IOHEXOL 350 MG IODINE/ML IV 100 ML BOTTLE: 75mL (accession [id number]) TECHNIQUE: Head and neck CT angiogram with IV contrast. Noncontrast head CT followed by axial helical CT images of the head and neck vessels obtained during the arterial phase of intravenous contrast administration. Axial 2D reconstructed images and multiplanar 3D MIP reconstructed images of the head and neck vessels were performed by the technologist. Dose reduction techniques were used. All stenosis measurements made according to NASCET criteria unless otherwise specified. FINDINGS: NONCONTRAST HEAD CT: INTRACRANIAL CONTENTS: Normal parenchymal morphology. Normal ventricular volumes for age. No intracranial hemorrhage, extraaxial collection, or mass effect. No CT evidence of acute infarct. Redemonstrated partially empty sella. VISUALIZED ORBITS/SINUSES/MASTOIDS: No intraorbital abnormality. No paranasal sinus mucosal disease. No middle ear or mastoid effusion. BONES/SOFT TISSUES: No acute abnormality. NECK CTA: AORTIC ARCH: Normal caliber three-vessel aortic arch. Patent proximal great vessels. RIGHT CAROTID: Patent. LEFT CAROTID: Patent. VERTEBRAL ARTERIES: Patent. Right dominant vertebral system. NONVASCULAR STRUCTURES: Unremarkable. HEAD CTA: Assessment degraded due to bolus timing. ANTERIOR CIRCULATION: Patent intracranial carotid vasculature. No large vessel occlusion or aneurysm. POSTERIOR CIRCULATION: Patent intracranial vertebral vasculature. Patent basilar artery. No large vessel occlusion or aneurysm. DURAL VENOUS SINUSES: Right transverse sinus stent present but patency not well characterized due to nature of study (CTA rather than CTV). Narrowed left transverse sinus. Procedure Note Hal Robin MD - 01/19/2025 For Patients: As a result of the Century Cures Act, medical imagingexams and procedure reports are released immediately into your electronicmedical record. You may view this report before your referring provider.If you have questions, please contact your health care provider. EXAM: CT HEAD BRAIN WO, CTA HEAD AND NECK CAROTID LOCATION: [facility] DATE: 01/19/2025 INDICATION: headache, tinnitus COMPARISON: CT and CTV head 12/20/2024. CTV head 01/03/2025. MRI brain04/28/2024. CONTRAST: *None (accession [id number]), IOHEXOL 350 MG IODINE/ML IV 100 MLBOTTLE: 75mL (accession [id number]) TECHNIQUE: Head and neck CT angiogram with IV contrast. Noncontrast headCT followed by axial helical CT images of the head and neck vesselsobtained during the arterial phase of intravenous contrast administration.Axial 2D reconstructed images and multiplanar 3D MIP reconstructed imagesof the head and neck vessels were performed by the technologist. Dosereduction techniques were used. All stenosis measurements made accordingto NASCET criteria unless otherwise specified. FINDINGS: NONCONTRAST HEAD CT: INTRACRANIAL CONTENTS: Normal parenchymal morphology. Normal ventricularvolumes for age. No intracranial hemorrhage, extraaxial collection, ormass effect. No CT evidence of acute infarct. Redemonstrated partiallyempty sella. VISUALIZED ORBITS/SINUSES/MASTOIDS: No intraorbital abnormality. Noparanasal sinus mucosal disease. No middle ear or mastoid effusion. BONES/SOFT TISSUES: No acute abnormality. NECK CTA: AORTIC ARCH: Normal caliber three-vessel aortic arch. Patent proximalgreat vessels. RIGHT CAROTID: Patent. LEFT CAROTID: Patent. VERTEBRAL ARTERIES: Patent. Right dominant vertebral system. NONVASCULAR STRUCTURES: Unremarkable. HEAD CTA: Assessment degraded due to bolus timing. ANTERIOR CIRCULATION: Patent intracranial carotid vasculature. No largevessel occlusion or aneurysm. POSTERIOR CIRCULATION: Patent intracranial vertebral vasculature. Patentbasilar artery. No large vessel occlusion or aneurysm. DURAL VENOUS SINUSES: Right transverse sinus stent present but patency notwell characterized due to nature of study (CTA rather than CTV). Narrowedleft transverse sinus. IMPRESSION: HEAD CT: 1. No acute intracranial abnormality. NECK CTA: 1. Patent neck vasculature. HEAD CTA: 1. No large vessel occlusion. No discernible aneurysm. 2. Right transverse sinus stent patency not assessed. Narrowed lefttransverse sinus. us Zara Hay MD CT Final Res ult * (ABNORMAL) CBC WITH AUTO DIFFERENTIAL (01/19/2025 10:18 AM CDT) [facility] WHITE BLOOD COUNT 10.2 4.5 - 11.0 thou/cu mm 01/19/2025 10:23 AM CDT [facility] RED BLOOD COUNT 5.15 4.00 - 5.20 mil/cu mm 01/19/2025 10:23 AM CDT [facility] HEMOGLOBIN 14.6 12.0 - 16.0 g/dL 01/19/2025 10:23 AM CDT [facility] HEMATOCRIT 41.9 33.0 - 51.0 % 01/19/2025 10:23 AM CDT [facility] MCV 81 80 - 100 fL 01/19/2025 10:23 AM CDT [facility] MCH 28.3 26.0 - 34.0 pg 01/19/2025 10:23 AM CDT [facility] MCHC 34.8 32.0 - 36.0 g/dL 01/19/2025 10:23 AM CDT [facility] RDW 11.9 11.5 - 15.5 % 01/19/2025 10:23 AM CDT [facility] PLATELET COUNT 285 140 - 440 thou/cu mm 01/19/2025 10:23 AM CDT [facility] MPV 8.6 6.5 - 11.0 fL 01/19/2025 10:23 AM CDT [facility] NRBC 0.0 % 01/19/2025 10:23 AM CDT [facility] ABS NRBC 0.0 thou /cu mm 01/19/2025 10:23 AM CDT [facility] % NEUT 80.2 % 01/19/2025 10:23 AM CDT [facility] % LYMPH 11.4 % 01/19/2025 10:23 AM CDT [facility] % MONO 7.2 % 01/19/2025 10:23 AM CDT [facility] % EOS 0.4 % 01/19/2025 10:23 AM CDT [facility] % BASO 0.3 % 01/19/2025 10:23 AM CDT [facility] % IMMATURE GRAN (METAS,MYELOS,OK OS) 0.5 % 01/19/2025 10:23 AM CDT [facility] ABSOLUTE NEUTROPHILS 8.2(H) 1.7 - 7.0 thou/cu mm 01/19/2025 10:23 AM CDT [facility] ABSOLUTE LYMPHOCYTES 1.2 0.9 - 2.9 thou/cu mm 01/19/2025 10:23 AM CDT [facility] ABSOLUTE MONOCYTES 0.7 <0.9 thou/cu mm 01/19/2025 10:23 AM CDT [facility] ABSOLUTE EOSINOPHILS 0.0 <0.5 thou/cu mm 01/19/2025 10:23 AM CDT [facility] ABSOLUTE BASOPHILS 0.0 <0.3 thou/cu mm 01/19/2025 10:23 AM CDT [facility] ABSOLUTE IMMATURE GRANULOCYTES(MET ,MYELOS,PROS) 0.1 <0.3 thou/cu mm 01/19/2025 10:23 AM CDT [facility] Blood BLOOD SPECIMEN / Unknown IV Start / Unknown 01/19/2025 10:18 AM CDT 01/19/2025 10:21 AM CDT us Zara Hay MD HEMATOLOGY Final Res ult [facility] [address] [place] [id number], [place] [phone] * ,SERUM QUALITATIVE (01/19/2025 10:18 AM CDT) ,SERU M Negative Negative 01/19/2025 10:33 AM CDT [facility] Blood BLOOD SPECIMEN / Unknown IV Start / Unknown 01/19/2025 10:18 AM CDT 01/19/2025 10:21 AM CDT us Zara Hay MD CHEMISTRY Final Res ult [facility] [address] [place] [id number], [place] [phone] * (ABNORMAL) BASIC METABOLIC PANEL (01/19/2025 10:18 AM CDT) SODIUM 139 136 - 145 mmol/L 01/19/2025 10:41 AM CDT [facility] POTASSIUM 4.0 3.5 - 5.1 mmol/L 01/19/2025 10:41 AM CDT [facility] CHLORIDE 103 98 - 107 mmol/L 01/19/2025 10:41 AM CDT [facility] CO2,TOTAL 24 22 - 29 mmol/L 01/19/2025 10:41 AM CDT [facility] ANION GAP 12 5 - 18 01/19/2025 10:41 AM CDT [facility] GLUCOSE 122(H) 70 - 99 mg/dL 01/19/2025 10:41 AM CDT [facility] CALCIUM 9.5 8.8 - 10.4 mg/dL 01/19/2025 10:41 AM CDT [facility] Comment: Reference ranges for this test were updated on 08/23/2024 to reflect our healthy population more accurately. Reference range changes are not retroactively applied to results, but previous results using the same methodology can be interpreted in the context of the new reference range. BUN 15 6 - 20 mg/dL 01/19/2025 10:41 AM CDT [facility] CREATININE 0.60 0.50 - 0.90 mg/dL 01/19/2025 10:41 AM CDT [facility] BUN/CREAT RATIO 25(H) 10 - 20 10:41 AM CDT [facility] eGFR >90 >90 mL/min/1.7 3m2 01/19/2025 10:41 AM CDT [facility] Comment:As of 2021, eG FR is calculated by the CKD-EPI creatinine equation without race adjustment. eGFR can be influenced by muscle mass, exercise, and diet. The reported eGFR is an estimation only and is only applicable if the renal function is stable. Blood BLOOD SPECIMEN / Unknown IV Start / Unknown 01/19/2025 10:18 AM CDT 01/19/2025 10:21 AM CDT us Zara Hay MD CHEMISTRY Final Res ult [facility] [address] [place] [address], * CT VENOGRAM HEAD W (01/03/2025 8:23 AM CDT) Only the most recent of2 resultswithin the time period is included. Anatomical Region Laterality Modality HEAD, BRAIN Computed Tomogra phy 01/03/2025 10:4 6 AM CDT Impressions 01/03/2025 10:46 AM CDT Patent right transverse sinus stent. Please note that all CT scans at this facility use dose modulation, iterative reconstruction, and/or weight-based dosing when appropriate to reduce radiation dose to as low as reasonably achievable. Dictated by Jose E Peterson MD @ 01/03/2025 9:48:20 AM (Electronically Signed) Narrative 01/03/2025 10:46 AM CDT For Patients: As a result of the Century Cures Act, medical imaging exams and procedure reports are released immediately into your electronic medical record. You may view this report before your referring provider. If you have questions, please contact your health care provider. INDICATION: Headache, pulsatile tinnitus. TECHNIQUE: CTV head with contrast bolus tracking, 3D angiographic rendering using maximum intensity projection (MIP) and images permanently archived. Comparison: 12/20/2024. FINDINGS: A right transverse sinus stent is in place. The device appears patent. There is otherwise normal opacification of the intracranial vasculature. Procedure Note Jose E Peterson MD - 01/03/2025 For Patients: As a result of the Cures Act, medical imagingexams and procedure reports are released immediately into your electronicmedical record. You may view this report before your referring provider.If you have questions, please contact your health care provider. INDICATION: Headache, pulsatile tinnitus. TECHNIQUE: CTV head with contrast bolus tracking, 3D angiographic rendering usingmaximum intensity projection (MIP) and images permanently archived. Comparison: 12/20/2024. FINDINGS: A right transverse sinus stent is in place. The device appears patent.There is otherwise normal opacification of the intracranial vasculature. IMPRESSION: Patent right transverse sinus stent. Please note that all CT scans at this facility use dose modulation,iterative reconstruction, and/or weight-based dosing when appropriate toreduce radiation dose to as low as reasonably achievable. Dictated by Jose E Peterson MD @ 01/03/2025 9:48:20 AM (Electronically Signed) Jose E Peterson MD CT Final Result * HPV HIGH RISK (04/28/2024 8:45 AM CDT) Pathologist [facility] TYPE 16 Negative Negative 05/04/2024 5:58 AM CDT [facility] TYPE 18 Negative Negative 05/04/2024 5:58 AM CDT [facility] OTHER HIGH RISK TYPES Negative Negative 05/04/2024 5:58 AM CDT [facility] Other (Cervical) Non-Blood / Unknown 04/28/2024 8:45 AM CDT 04/29/2024 9:36 AM CDT Narrative [facility] 05/04/2024 5:58 AM CDT HPV types 16, 18, 31, 33, 35, 39, 45, 51, 52, 56, 58, 59, 66 and 68 DNA were undetectable or below the pre-set threshold. Methodology: Kiesha Karine 4800 HPV Test Nidia Farrell DO MICROBIOLOGY Final Resu lt [facility] [address] [place] [address], * ANTI HCV (09/25/2022 9:20 AM SEAL DELIVERY VEHICLE OFFICER) HEPATITIS C ANTIBODY Non-React jose a Non-React jose a 09/28/2022 10:02 AM SEAL DELIVERY VEHICLE OFFICER [facility] Comment:Antibodies to HCV no t detected; does not exclude the possibility of exposure to HCV. Blood BLOOD SPECIMEN / Unknown Venipuncture / Unknown 09/25/2022 9:20 AM SEAL DELIVERY VEHICLE OFFICER 09/25/2022 9:20 AM SEAL DELIVERY VEHICLE OFFICER Amna MACK SEND OUTS Final Resu lt [facility] [address] [place] [address], * ANTI HIV 1/2 (09/25/2022 9:20 AM SEAL DELIVERY VEHICLE OFFICER) Pathologist [facility] HIV-1/HIV-2 ANTIBODY Non-Reacti ve Non-Reacti ve 09/28/2022 9:31 AM SEAL DELIVERY VEHICLE OFFICER [facility] Comment:HIV-1 p24 and HIV-1/ HIV-2 Ab not detected. Blood BLOOD SPECIMEN / Unknown Venipuncture / Unknown 09/25/2022 9:20 AM SEAL DELIVERY VEHICLE OFFICER 09/25/2022 9:20 AM SEAL DELIVERY VEHICLE OFFICER Amna MACK SEND OUTS Final Resu lt [facility] 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
[2025-02-24 08:14] LABS: Basophils Absolute Auto 0.02 K/uL (0.00-0.30); Basophils Percent Auto 0.3 % (0.0-3.0); Eosinophils Absolute Auto 0.21 K/uL (0.00-0.50); Eosinophils Percent Auto 2.9 % (0.0-7.0); Hematocrit 40.5 % (33.0-51.0); Hemoglobin* 14.1 gm/dL (12.0-16.0); Immature Granulocytes Abs Auto 0.03 K/uL (0.00-0.30); Immature Granulocytes Pct Auto 0.4 %; Lymphocytes Absolute Auto 1.63 K/uL (0.90-2.90); Lymphocytes Percent Auto 22.3 % (20-44); Mean Corpuscular HGB Conc 35 gm/dL (32-36); Mean Corpuscular Hemoglobin 28 pg (26-34); Mean Corpuscular Volume 81 fL (80-100); Monocytes Percent Auto 6.3 % (0.0-11.0); Neutrophils Absolute Auto 4.96 K/uL (1.7-7.0); Neutrophils Percent Auto 67.8 % (42.0-72.0); Platelet Count* 319 K/uL (140-440); Red Blood Count 5.01 m/uL (4.00-5.20); White Blood Count* 7.31 K/uL (4.50-11.00)
[2025-02-24 08:15] LABS: Slide Review Reflex No
--- NOTE | 2025-02-24 08:15 | CRLHL7_ITS ---
For Patients: As a result of the 21st Century Cures Act, medical imaging exams and procedure reports are released immediately into your electronic medical record. You may view this report before your referring provider. If you have questions, please contact your health care provider. INDICATION: Trauma COMPARISON: None TECHNIQUE: CT examination of the chest, abdomen and pelvis was performed following the uneventful intravenous administration of 123 cc of Isovue 370. Thin section axial images were obtained from the thoracic inlet through the pubic symphysis. Oral contrast was not administered. Sagittal and coronal reformatted imaging was performed Please note that all CT scans at this facility use dose modulation, iterative reconstruction, and/or weight-based dosing when appropriate to reduce radiation dose to as low as reasonably achievable. FINDINGS: CHEST: Heart size normal. No mediastinal or hilar adenopathy or mass. No pericardial effusion. No indication of mediastinal vascular injury. Lungs and pleural spaces show no posttraumatic findings. There is a 4 millimeter nodule in the right middle lobe. A nodule of this size generally does not require follow-up. In high-risk individuals, a 12 month follow-up noncontrast chest CT is considered optional according to the Fleischner society criteria. ABDOMEN AND PELVIS: LIVER/BILIARY SYSTEM:The liver is normal in size and configuration. There is no focal mass and there is no intra- or extra hepatic biliary ductal dilatation.The gall bladder appears normal. ADRENALS: Normal KIDNEYS, URETERS and BLADDER:The kidneys appear normal. No visible mass, calculus or hydronephrosis. The ureters and bladder as visualized appear normal. SPLEEN:Normal appearance. PANCREAS: Appears normal. RETROPERITONEUM and MESENTERY: There is no mass, adenopathy or aortic aneurysm. GASTROINTESTINAL SYSTEM: There is no evidence of diverticulitis, colitis, mechanical obstruction, or appendicitis. The small bowel as visualized appears normal. PELVIS: No mass, adenopathy or free fluid. OSSEOUS STRUCTURES and ABDOMINAL WALL: No posttraumatic findings involving any of the osseous structures of the chest, abdomen or pelvis. No abdominal wall abnormality. OTHER: No free fluid or free air. IMPRESSION: 1. No posttraumatic findings identified in the chest, abdomen or pelvis. 2. No acute osseous injury. 3. There is a 4 millimeter nodule in the right middle lobe with management recommendations as above Please note that all CT scans at this facility use dose modulation, iterative reconstruction, and/or weight-based dosing when appropriate to reduce radiation dose to as low as reasonably achievable. Dictated by Ryan Weiss MD @ 02/24/2025 8:54:10 AM (Electronically Signed)
--- NOTE | 2025-02-24 08:15 | CRLHL7_ITS ---
For Patients: As a result of the Century Cures Act, medical imaging exams and procedure reports are released immediately into your electronic medical record. You may view this report before your referring provider. If you have questions, please contact your health care provider. INDICATION: Injury COMPARISON: None TECHNIQUE: CT examination of the cervical spine is performed without contrast using spiral technique. Thin axial, sagittal and coronal reconstructions were made. Please note that all CT scans at this facility use dose modulation, iterative reconstruction, and/or weight-based dosing when appropriate to reduce radiation dose to as low as reasonably achievable. FINDINGS: : No malalignment. Mild straightening which is probably due to muscle spasm or positioning No significant arthritic changes. No acute fracture, dislocation or destructive process. A stent is noted in the right transverse and sigmoid sinus. This is poorly seen on the head CT due to motion artifact. IMPRESSION: Straightening. No acute fracture, dislocation or destructive process. Stent in the right transverse and sigmoid sinus. The stent was poorly seen on the head CT due to motion artifact. Please note that all CT scans at this facility use dose modulation, iterative reconstruction, and/or weight-based dosing when appropriate to reduce radiation dose to as low as reasonably achievable. Dictated by Ryan Weiss MD @ 02/24/2025 8:48:04 AM (Electronically Signed)
--- NOTE | 2025-02-24 08:15 | CRLHL7_ITS ---
For Patients: As a result of the Century Cures Act, medical imaging exams and procedure reports are released immediately into your electronic medical record. You may view this report before your referring provider. If you have questions, please contact your health care provider. INDICATION: Injury COMPARISON: None TECHNIQUE: CT examination of the head was performed as axial sections without intravenous contrast. Images were obtained from the vertex of the skull through the skull base. Please note that all CT scans at this facility use dose modulation, iterative reconstruction, and/or weight-based dosing when appropriate to reduce radiation dose to as low as reasonably achievable. FINDINGS: There are limitations due to motion artifact. The brain shows no sign of mass lesion, mass effect, hemorrhage, or edema. The ventricles and sulci are normal in appearance for the patient`s age. The visualized portions of the orbits are normal in appearance. The osseous structures are normal in their appearance with no sign of abnormality in the skull base or calvarium. IMPRESSION: Limitations due to motion artifact. However, no acute intracranial posttraumatic findings. Please note that all CT scans at this facility use dose modulation, iterative reconstruction, and/or weight-based dosing when appropriate to reduce radiation dose to as low as reasonably achievable. Dictated by Ryan Weiss MD @ 02/24/2025 8:44:05 AM (Electronically Signed)
--- NOTE | 2025-02-24 08:15 | CRLHL7_ITS ---
For Patients: As a result of the Cures Act, medical imaging exams and procedure reports are released immediately into your electronic medical record. You may view this report before your referring provider. If you have questions, please contact your health care provider. Indication: Injury Technique: A total of three views of the left wrist were acquired. Comparison: None Findings: Bones: Alignment is normal. No fractures or bone lesions. Joint spaces: Unremarkable. Soft tissues: Soft tissue swelling noted on the radial and volar side at the distal radius. No foreign body identified. Impression: No acute fracture, dislocation or destructive process.Soft tissue swelling. No foreign body identified. Dictated by Ryan Weiss MD @ 02/24/2025 8:58:50 AM (Electronically Signed)
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
[2025-02-24 08:26] LABS: Chloride* 109 mmol/L (96-114)
[2025-02-24 08:27] LABS: Potassium* 3.7 mmol/L (3.6-5.1); Sodium* 141 mmol/L (135-149)
[2025-02-24 08:29] LABS: Blood Urea Nitrogen* 18 mg/dL (5-24); Creatinine* 0.8 mg/dL (0.5-1.5); Est. Creatinine Clearance* 98.01; Estimated Glomerular Filt Rate 103 ml/min; INR 0.93 (0.91-1.10); Prothrombin Time 13.3 Seconds
[2025-02-24 08:30] LABS: Anion Gap 12 mEq/L (7-15); Calcium* 9.3 mg/dL (8.4-10.6); Carbon Dioxide* 20 mmol/L (20-32); Glucose* 145 mg/dL (60-115)
[2025-02-24 08:51] LABS: HCG Quantitative* < 2.39 mIU/mL
[2025-02-24] MEDS: fentaNYL 100 MCG/2 ML inj 50 MCG IVP (08:59)
--- OUTSIDE RECORDS SUMMARY | 2025-02-24 09:41 | XMS_ITS | Clinical Summary ---
Author Organization [facility] Address [address] [place] [address] Care Team Providers Care Engineering Faculty Member Name Role Phone Bella Stafford CORE CUTTER Unavailable [phone] Jf Hardin RN Unavailable Nidia Farrell DO Primary Care Provider [phone] Cali Abbott MD Unavailable [phone] Allergies Active Allergy Reactions Criticality Noted Date [...] (or sleep). 30 Tablet 4 9:00 PM PORCELAIN ENAMELING SUPERVISOR 11/12/19 24 Active LORazepam (ATIVAN) 0.5 mg [...] Noted Date Diagnosed Date Pulsatile tinnitus 02/10/2025 [facility] Encounter for preconception consultation Overview (08/01/2024): Rosa Wren Heber : 1995 [facility] PRECONCEPTION CONSULTATION ON 08/04/24 REFERRING PROVIDER/CLINIC LOCATION/FAX #: JOSE Arriola P [phone]; F [phone] Primary MD approves scheduling of recommended ultrasounds/testing: [...] - 02/10/2025 11:59 PM CDT Hospital Encounter [facility] [address] [place] [address] Jose E Peterson MD Pulsatile tinnitus; Headache 02/10/2025 Travel 01/24/2025 10:10 AM CDT Office Visit [facility] [address] [place] [address] Emily Escalante, DO Preoperative Exam (CT Angiogram , 02/10, [facility], Dr. Jose E Peterson) 01/24/2025 7:00 AM CDT Telemedicine [facility] [address] [place] [address] Ana Babb, OCULAR CARE TECHNICIAN Individual Therapy 01/24/2025 Travel 01/20/2025 Telephone [facility] [address] [place] [address] Dawn James RN Concerns 01/20/2025 Travel 01/19/2025 9:34 AM CDT - 01/19/2025 2:49 PM CDT Emergency [facility] [address] [place] [address] Zara Hay MD Nonintractable headache, unspecified chronicity pattern, unspecified headache type (Primary Dx) Discharge Disposition: Home Self Care 01/19/2025 Travel 01/09/2025 11:00 AM CDT E-Visit [address] [address] Emily Escalante, DO eVisit for Vaginal Discharge / Irritation 01/09/2025 Travel 01/03/2025 7:00 AM CDT - 01/03/2025 11:59 PM CDT Hospital Encounter [facility] [address] [place] [address] Jose E Peterson MD Pulsatile tinnitus; Headache 01/03/2025 Travel 12/21/2024 Telephone [facility] [address] [place] [address] Dawn James RN Imaging 12/20/2024 6:59 AM PORCELAIN ENAMELING SUPERVISOR - 12/20/2024 11:59 PM PORCELAIN ENAMELING SUPERVISOR Hospital Encounter [facility] [address] [place] [address] Jose E Peterosn MD Headache; Pulsatile tinnitus 12/20/2024 Travel 12/16/2024 Telephone [facility] [address] [place] [address] Rina Heath NP Concerns 12/13/2024 9:12 AM PORCELAIN ENAMELING SUPERVISOR - 12/13/2024 11:59 PM PORCELAIN ENAMELING SUPERVISOR Hospital Encounter [facility] [id number] [place] [address] Emily Escalante DO Holm, Kaitlyn A, PT 12/13/2024 Travel 12/06/2024 9:11 AM PORCELAIN ENAMELING SUPERVISOR - 12/06/2024 11:59 PM PORCELAIN ENAMELING SUPERVISOR Hospital Encounter [facility] [address] [address] Emily Escalante DO Holm, Kaitlyn A, PT 12/06/2024 Travel 12/05/2024 Medical Messaging [facility] [address] [place] [address] Emily Escalante DO Neurology referral 11/29/2024 9:06 AM PORCELAIN ENAMELING SUPERVISOR - 11/29/2024 11:59 PM PORCELAIN ENAMELING SUPERVISOR Hospital Encounter [facility] [address] [address] Emily Escalante DO Holm, Kaitlyn A, PT [...] II Maternal Grandfather Antolin Hyperlipidemia Maternal Grandfather Antolin Hypertension Maternal Grandfather Antolin Obesity Maternal Grandfather Antolin Diabetes Maternal Grandmother Ernetta Diabetes type II Maternal Grandmother Renetta Hyperlipidemia [...] History Relation Name Status Comments Brother 1 Stefano Brother 2 Sebastian Father Sebastian Half-Sister Lori [...] Sex Assigned at Female 09/30/2021 9:19 PM PORCELAIN ENAMELING SUPERVISOR Legal Sex Female 4:34 PM PORCELAIN ENAMELING SUPERVISOR Gender Identity Female 09/30/2021 9:19 PM PORCELAIN ENAMELING SUPERVISOR Sexual Orientation Straight 09/30/2021 9: 19 PM PORCELAIN ENAMELING SUPERVISOR Occupation Industry Job Start Date Job End [...] HEAD BRAIN WO ASHA 12/20/2024 7:30 AM PORCELAIN ENAMELING SUPERVISOR Headache Pulsatile tinnitus CT VENOGRAM HEAD W ASHA 12/20/2024 7 :25 AM PORCELAIN ENAMELING SUPERVISOR Headache Pulsatile tinnitus HPV HIGH RISK Routine 04/28/2024 8:45 AM CDT Cervical cancer screening ANTI HIV 1/2 Routine 09/25/2022 9:20 AM PORCELAIN ENAMELING SUPERVISOR Encounter for screening for HIV ANTI HCV Routine 09/25/2022 9:20 AM PORCELAIN ENAMELING SUPERVISOR Need for hepatitis C screening test from [...] angiography of the intracranial carotid circulation (CPT 04720) Selective catheter placement, right external carotid artery, with angiography of the external carotid circulation (CPT +66719) Selective catheter placement, left internal carotid artery, with angiography of the intracranial carotid circulation (CPT 85471) Selective catheter placement, left external carotid artery, with angiography of the external carotid circulation (CPT +10505) Selective catheter placement, right vertebral artery, with angiography of the vertebral circulation (CPT 55979) Selective catheter placement, left vertebral artery, with angiography of the vertebral circulation (CPT 26691) Ultrasound guidance for vascular access: right common femoral artery access (CPT +84833) Selective catheter placement, venous system; second order, or more selective: superior sagittal sinus (CPT 21795) Venography, superior sagittal sinus, radiological supervision and interpretation (CPT 01834) Venography, venous sinus, radiological supervision and interpretation: right transverse sigmoid sinus (CPT 72741) Ultrasound guidance for vascular access: right common femoral vein access (CPT +19236) Pre-operative diagnosis (indication): Persistent headaches, tinnitus, right transverse sinus stent placed in 2022. Post-operative diagnosis: Same, see Impression. Anesthesia: Lidocaine 1% local. Consent: Informed consent was obtained from the patient following a detailed discussion of the procedure, alternatives, risks and potential benefits. Time-out: Performed according to the [place] Protocol. Description: The patient was placed in [...] E Negative Negative 02/10/2025 7:51 AM CDT [facility] Urine URINE SPECIMEN / Unknown Non-Blood / Unknown 02/10/2025 7:38 AM CDT 02/10/2025 7:38 AM CDT Rina Heath CORE CUTTER URINE Final Res ult [facility] [address] [place] [address], [place] * CREATININE (01/24/2025 10:30 AM CDT) CREATININE 0.59 0.50 - 0.96 mg/dL [facility] EGFR 126 > OR = 60 mL/min/1.73 m2 [facility] Blood BLOOD SPECIMEN / Unknown 01/24/2025 10:30 AM CDT 01/24/2025 10:31 AM CDT us Emily Delgadocarrie DO CHEMISTRY Final Result [facility] [address] [place] [address], [place] [phone] [facility] [address] [place] [address] * MR HEAD BRAIN VENOGRAM WWO (01/19/2025 [...] VENOGRAM WWO, MR HEAD BRAIN WWO LOCATION: [facility] DATE: 01/19/2025 INDICATION: Headache, intracranial hypertension features COMPARISON: MRI brain 04/28/2024. CTA jamul of Sims and neck 01/19/2025. CTV 01/03/2025. [...] VENOGRAM WWO, MR HEAD BRAIN WWO LOCATION: [facility] DATE: 01/19/2025 INDICATION: Headache, intracranial hypertension features COMPARISON: MRI brain 04/28/2024. CTA jamul of Sims and neck 01/19/2025.CTV 01/03/2025. CONTRAST: [...] VENOGRAM WWO, MR HEAD BRAIN WWO LOCATION: [facility] DATE: 01/19/2025 INDICATION: Headache, intracranial hypertension features COMPARISON: MRI brain 04/28/2024. CTA jamul of Sims and neck 01/19/2025. CTV 01/03/2025. [...] hypertension features COMPARISON: MRI brain 04/28/2024. CTA jamul of Sims and neck 01/19/2025.CTV 01/03/2025. CONTRAST: [...] 01/03/2025. MRI brain 04/28/2024. CONTRAST: *None (accession [id number]), IOHEXOL 350 MG IODINE/ML IV 100 ML BOTTLE: 75mL (accession [id number]) TECHNIQUE: Head and neck CT angiogram with [...] head 01/03/2025. MRI brain04/28/2024. CONTRAST: *None (accession [id number]), IOHEXOL 350 MG IODINE/ML IV 100 MLBOTTLE: 75mL (accession [id number]) TECHNIQUE: Head and neck CT angiogram with [...] WO, CTA HEAD AND NECK CAROTID LOCATION: [facility] DATE: 01/19/2025 INDICATION: headache, tinnitus COMPARISON: CT and CTV head 12/20/2024. CTV head 01/03/2025. MRI brain 04/28/2024. CONTRAST: *None (accession [id number]), IOHEXOL 350 MG IODINE/ML IV 100 ML BOTTLE: 75mL (accession [id number]) TECHNIQUE: Head and neck CT angiogram with [...] WO, CTA HEAD AND NECK CAROTID LOCATION: [facility] DATE: 01/19/2025 INDICATION: headache, tinnitus COMPARISON: CT and CTV head 12/20/2024. CTV head 01/03/2025. MRI brain04/28/2024. CONTRAST: *None (accession [id number]), IOHEXOL 350 MG IODINE/ML IV 100 MLBOTTLE: 75mL (accession [id number]) TECHNIQUE: Head and neck CT angiogram with [...] patency not assessed. Narrowed lefttransverse sinus. us Zraa Hay MD CT Final Res ult * (ABNORMAL) CBC WITH AUTO DIFFERENTIAL (01/19/2025 10:18 AM CDT) [facility] WHITE BLOOD COUNT 10.2 4.5 - 11.0 thou/cu mm 01/19/2025 10:23 AM CDT [facility] RED BLOOD COUNT 5.15 4.00 - 5.20 mil/cu mm 01/19/2025 10:23 AM CDT [facility] HEMOGLOBIN 14.6 12.0 - 16.0 g/dL 01/19/2025 10:23 AM CDT [facility] HEMATOCRIT 41.9 33.0 - 51.0 % 01/19/2025 10:23 AM CDT [facility] MCV 81 80 - 100 fL 01/19/2025 10:23 AM CDT [facility] MCH 28.3 26.0 - 34.0 pg 01/19/2025 10:23 AM CDT [facility] MCHC 34.8 32.0 - 36.0 g/dL 01/19/2025 10:23 AM CDT [facility] RDW 11.9 11.5 - 15.5 % 01/19/2025 10:23 AM CDT [facility] PLATELET COUNT 285 140 - 440 thou/cu mm 01/19/2025 10:23 AM CDT [facility] MPV 8.6 6.5 - 11.0 fL 01/19/2025 10:23 AM CDT [facility] NRBC 0.0 % 01/19/2025 10:23 AM CDT [facility] ABS NRBC 0.0 thou /cu mm 01/19/2025 10:23 AM CDT [facility] % NEUT 80.2 % 01/19/2025 10:23 AM CDT [facility] % LYMPH 11.4 % 01/19/2025 10:23 AM CDT [facility] % MONO 7.2 % 01/19/2025 10:23 AM CDT [facility] % EOS 0.4 % 01/19/2025 10:23 AM CDT [facility] % BASO 0.3 % 01/19/2025 10:23 AM CDT [facility] % IMMATURE GRAN (METAS,MYELOS,WA OS) 0.5 % 01/19/2025 10:23 AM CDT [facility] ABSOLUTE NEUTROPHILS 8.2(H) 1.7 - 7.0 thou/cu mm 01/19/2025 10:23 AM CDT [facility] ABSOLUTE LYMPHOCYTES 1.2 0.9 - 2.9 thou/cu mm 01/19/2025 10:23 AM CDT [facility] ABSOLUTE MONOCYTES 0.7 <0.9 thou/cu mm 01/19/2025 10:23 AM CDT [facility] ABSOLUTE EOSINOPHILS 0.0 <0.5 thou/cu mm 01/19/2025 10:23 AM CDT [facility] ABSOLUTE BASOPHILS 0.0 <0.3 thou/cu mm 01/19/2025 10:23 AM CDT [facility] ABSOLUTE IMMATURE GRANULOCYTES(MET ,MYELOS,PROS) 0.1 <0.3 thou/cu mm 01/19/2025 10:23 AM CDT [facility] Blood BLOOD SPECIMEN / Unknown IV Start / Unknown 01/19/2025 10:18 AM CDT 01/19/2025 10:21 AM CDT us Zara Hay MD HEMATOLOGY Final Res ult [facility] [address] [place] [address], [place] [phone] * ,SERUM QUALITATIVE (01/19/2025 10:18 AM CDT) ,SERU M Negative Negative 01/19/2025 10:33 AM CDT [facility] Blood BLOOD SPECIMEN / Unknown IV Start / Unknown 01/19/2025 10:18 AM CDT 01/19/2025 10:21 AM CDT us Zara Hay MD CHEMISTRY Final Res ult [facility] [address] [place] [address], [place] [phone] * (ABNORMAL) BASIC METABOLIC PANEL (01/19/2025 10:18 AM CDT) SODIUM 139 136 - 145 mmol/L 01/19/2025 10:41 AM CDT [facility] POTASSIUM 4.0 3.5 - 5.1 mmol/L 01/19/2025 10:41 AM CDT [facility] CHLORIDE 103 98 - 107 mmol/L 01/19/2025 10:41 AM CDT [facility] CO2,TOTAL 24 22 - 29 mmol/L 01/19/2025 10:41 AM CDT [facility] ANION GAP 12 5 - 18 01/19/2025 10:41 AM CDT [facility] GLUCOSE 122(H) 70 - 99 mg/dL 01/19/2025 10:41 AM CDT [facility] CALCIUM 9.5 8.8 - 10.4 mg/dL 01/19/2025 10:41 AM CDT [facility] Comment: Reference ranges for this test were updated on 08/23/2024 to reflect our healthy population more accurately. Reference range changes are not retroactively applied to results, but previous results using the same methodology can be interpreted in the context of the new reference range. BUN 15 6 - 20 mg/dL 01/19/2025 10:41 AM CDT [facility] CREATININE 0.60 0.50 - 0.90 mg/dL 01/19/2025 10:41 AM CDT [facility] BUN/CREAT RATIO 25(H) 10 - 20 10:41 AM CDT [facility] eGFR >90 >90 mL/min/1.7 3m2 01/19/2025 10:41 AM CDT [facility] Comment:As of 2021, eG FR is [...] Zara Hay MD CHEMISTRY Final Res ult [facility] [address] [place] [address], * CT VENOGRAM HEAD W (01/03/2025 8:23 [...] HIGH RISK (04/28/2024 8:45 AM CDT) Pathologist [facility] TYPE 16 Negative Negative 05/04/2024 5:58 AM CDT [facility] TYPE 18 Negative Negative 05/04/2024 5:58 AM CDT [facility] OTHER HIGH RISK TYPES Negative Negative 05/04/2024 5:58 AM CDT [facility] Other (Cervical) Non-Blood / Unknown 04/28/2024 8:45 AM CDT 04/29/2024 9:36 AM CDT Narrative [facility] - 05/04/2024 5:58 AM CDT HPV types 16, 18, 31, 33, 35, 39, 45, 51, 52, 56, 58, 59, 66 and 68 DNA were undetectable or below the pre-set threshold. Methodology: Kiesha Karine 4800 HPV Test Nidia Farrell DO MICROBIOLOGY Final Resu lt [facility] [address] [place] [address], * ANTI HCV (09/25/2022 9:20 AM PORCELAIN ENAMELING SUPERVISOR) HEPATITIS C ANTIBODY Non-React jose a Non-React jose a 09/28/2022 10:02 AM PORCELAIN ENAMELING SUPERVISOR [facility] Comment:Antibodies to HCV no t detected; does not exclude the possibility of exposure to HCV. Blood BLOOD SPECIMEN / Unknown Venipuncture / Unknown 09/25/2022 9:20 AM PORCELAIN ENAMELING SUPERVISOR 09/25/2022 9:20 AM PORCELAIN ENAMELING SUPERVISOR Amna MACK SEND OUTS Final Resu lt [email or web address] [address] [place] [address], * ANTI HIV 1/2 (09/25/2022 9:20 AM PORCELAIN ENAMELING SUPERVISOR) Pathologist [facility] HIV-1/HIV-2 ANTIBODY Non-Reacti ve Non-Reacti ve 09/28/2022 9:31 AM PORCELAIN ENAMELING SUPERVISOR [facility] Comment:HIV-1 p24 and HIV-1/ HIV-2 Ab not detected. Blood BLOOD SPECIMEN / Unknown Venipuncture / Unknown 09/25/2022 9:20 AM PORCELAIN ENAMELING SUPERVISOR 09/25/2022 9:20 AM PORCELAIN ENAMELING SUPERVISOR Amna MACK SEND OUTS Final Resu lt [facility] [address] [place] [address], from Last 3 Months or Most Recently Relevant to Health Maintenance Insurance [employer] Advance Directives * Full Code (Latest Code Status on File) Date Activated Date Inactivated Comments 02/24/2023 3:08 PM 02/25/2023 2:04 PM Question Answer Comments Code Status Discussion: Reviewed Preferences Care Teams Engineering Faculty Member Relationship Specialty Start Date End Date Nidia Farrell DO [facility] [place] [address] PCP - General Family Practice 02/11/23 Bella Stafford NP [address] [place] [address] Nurse Practitioner - Family 10/23/22 Jf Hardin, RN [address] [place] [address] Registered Nurse 10/23/22 Cali Abbott MD [address] [place] [address] [address] [place] [address] Referring Provider Reproductive Endocrinology 07/11/24
--- OUTSIDE RECORDS SUMMARY | 2025-02-24 09:42 | XMS_ITS | Clinical Summary ---
Author Organization [facility] Address [address] [place] [address] Care Team Providers Care Legal Executive Assistant Name Role Phone Elsewhere, Pcp Primary Care Provider Unavailabl e Source Comments Patient records contain information from all sites at [facility]. For routine questions regarding patient records, call [phone] during business hours, M-F 8:00 AM - 5:00 PM Central Time. Record requests for emergency care only can be directed to [phone] at any time.[facility] Allergies No known active allergies Medications aspirin [...] week 10/23/2021 How often do you attend [facility] or gnosticist services? 1 to 4 times per year 10/23/2021 Do you belong to any clubs o r organizations such as mu-ism groups, unions, fraternal or athletic groups, or [...] Answer Date Recorded PHQ-2 Score 1 03/23/2022 [facility] - Occupational Stress [...] place to sleep or slept in a longterm (including now)? No 10/23/2021 Depression Answer Date [...] PM CDT Legal Sex Female 6:31 AM DIALYSIS CLINICAL MANAGER Gender Identity Female 06/20/2021 9:24 PM CDT [...] this topic Medical Devices Implanted Type Area Document Processing Specialist Device Identifier Shelf Expiration Date Model / Serial / Lot Stent Other Stent Other Cerebellum Procedures Procedure Name Priority Date/Time Associated Diagnosis Comments CHLAMYDIA/GONORRHOE AE AMPLIFIED RNA STAT 06/11/2023 1:23 AM CDT PATHOLOGY CERTIFIED FLIGHT INSTRUCTOR CYTOLOGY Routine 03/10/2018 12:00 AM CDT Pap [...] GENERAL ORDERABLES Final Result Performing Organization Address City/[facility]/ZIP Co de Phone Number [facility] [address] [place] [address], [facility] ECLR [address] [place] [id number] * Pathology CERTIFIED FLIGHT INSTRUCTOR Cytology (03/10/2018 12:00 AM CDT) PATHOLOGY CERTIFIED FLIGHT INSTRUCTOR CYTOLOGY Patient Name: HUY ARGUETA MR#: [id number] Submitting Physician: ARLINE JAMES, ADRIENNE, DNP, [facility] TEN[facility] PSYCHIATRIST [id number] Specimen #[id number] Performing Lab: [address] [address] CLINICAL HISTORY: Last menstrual period: [id number] Status: [...] Arline James APRN, C.N.P., D.N.P. LAB PAP ANGLE DOZER OPERATOR ATH ORDERABLES Final Result Performing Organization Address [facility] Co de Phone Number CANDE MATHEWS [address] [place] [address] from Last 3 Months or Most Recently Relevant to Health Maintenance Insurance [facility] [facility] Advance Directives For more information, please contact: [phone] * Full Code (Latest Code Status on File) Date Activated Date Inactivated Comments 06/11/2023 1:05 PM 06/12/2023 3:37 PM Question Answer Comments Full Code: Not Discussed Due to: Not medically appropriate Care Teams Legal Executive Assistant Relationship Specialty Start Date End Date Elsewhere, Pcp PCP - General Internal Medicine 06/11/23
--- OUTSIDE RECORDS SUMMARY | 2025-02-24 09:42 | XMS_ITS | Clinical Summary ---
Author Organization [facility] Address [address] , [address] [place] [address] Phone Care Team Providers Care Curriculum Advisory Teacher Name Role Phone 8CareTeamNurse-MA, 8CareTeamNurse-MA Unavailable Unavailable Conditions or Problems Problem Name Problem Code Onset Date Status Entry Date Provider Comment Standard Description Annotate Idiopathic intracranial hypertension [id number] (SNOMED CT) Active Stanton Pereyra MD Benign [...] mouth once a day thereafter 7 topiramate [id number] Stanton Pereyra MD TOPAMAX 25 MG TABS Take 2 tablet by mouth twice a day 5 topiramate [id number] Stanton Pereyra MD TOPAMAX 25 MG TABS Take 1 tablet by mouth once a day for 7 days, then take 2 tablet by mouth once a day for 7 days, then take 3 tablet by mouth once a day for 7 days, then take 4 tablet by mouth once a day thereafter 7 topiramate [id number] Stanton Pereyra MD VALIUM 5 MG TABS Take Take 1 tab 30 minutes prior to scan. May repeat once as needed. 1 diazepam [id number] Stanton Pereyra MD Medications Administered No information available. Allergies, Adverse Reactions, Alerts No information available. Results Date Name Value Unit Range Flag Description External Other: Outside Tom rds [facility] EHORDERS ORDERS AUTO-COMPLETED e-Health orders Plan of Care Type Date Detail Appointment 08:00 AM Rosemary toussaint PA-C, [address] [facility], [address], [place], [address], Referral Other Referral Pending order MRI-Brain W/WO Pending order Obtain outside r ecords Pending order Follow up Pending order Follow up Procedures Code Procedure Name Date Entry Date [id number] MRI-Brain W/WO ORDERS Obtain outside records 12/09 Vital Signs No information available. Immunizations No information available. Advance Directives No information available.
[2025-02-24] MEDS: ACETAMINOPHEN 500 MG TABLET 1000 MG PO (10:19)
== END 2025-02-24 11:18 | disposition short-term general hospital (02) ==
LOC: ED 09:39
PROVIDERS: Emergency Provider Emergency Medicine; PCP Physician Assistant Medical
DX: S36.00XA Unspecified injury of spleen, initial encounter (principal); M25.532 Pain in left wrist; V23.49XA Other motorcycle driver injured in collision with car, pick-up truck or van in traffic accident, initial encounter
CPT/HCPCS: 36415; 70450; 71260; 72125; 73110; 74177; 76604; 76705; 80048; 84702; 85025; 85610; 93308; 94761; 96374; 99284; 99285; 99291; A9270; G0390; J3010; Q9967

== ENCOUNTER 2025-02-24 10:34 | Outpatient (CLI) | payer BC, SELFPAY | END 2025-02-24 10:35 | disposition home or self-care (01) | PROVIDERS: PCP Physician Assistant Medical; Visit Provider Emergency Medicine | DX: S36.00XA Unspecified injury of spleen, initial encounter (principal); S69.92XA Unspecified injury of left wrist, hand and finger(s), initial encounter | CPT/HCPCS: A0425; A0433 ==